=== PATIENT | female | born 1950 | race Caucasian/White ===

== ENCOUNTER → 2017-01-12 | Day surgery (SDC) | payer OTHER ==
[~2017-01-12] MED LIST: ASPIRIN EC81 M1 PO; LISINOPRIL20 M1 PO; TIMOLOL MALEATE5 M4 OPH
--- NOTE | 2017-01-12 14:07 | Operative Report ---
Operative/Inv Procedure Report Surgery Date: 01/12/17 Name of Procedure: Left subclavian Port-A-Cath placement with ultrasound and fluoroscopic guidance Pre-Operative Diagnosis: Metastatic squamous cell carcinoma of the head and neck Post-Operative Diagnosis: Same Estimated Blood Loss: scant Surgeon/Sand Mixer Operator: QAMAR TAYLOR MD Anesthesia: local monitored anesthesi Implants: PowerPort Operative Indication: Patient presents for Port-A-Cath placement to facilitate adjuvant chemotherapy/ radiation therapy Operative/Procedure Note Note: After consent she was brought to the operating room and laid supine. Sedation was obtained and her left chest and neck were prepped and draped. Using ultrasound guidance, the subclavian vein was identified below the clavicle. It was percutaneously accessed and the wire placed on the right atrium. Confirmation of placement was performed with fluoroscopy. An incision was made over the wire and a pocket created inferiorly. The port was placed into the pocket and the catheter measured under fluoroscopy. It was trimmed to 20 cm. The dilating sheath was then placed over the wire under fluoroscopy. The catheter was placed on the right atrium and the sheath peeled away. Final fluoroscopic images showed the catheter at the atrial/SVC junction. The port was anchored to the deep subcutaneous tissues tissues with 0 Vicryl suture. It was flushed with concentrated heparin. The incision was closed in layers of 304 0 Vicryl. Steri-Strips and sterile dressing applied. Sponge and needle counts are correct CC: SHABNAM SHORE,HALEY; WILBER SHORE,ZEKE Reeder; SUJIT SHORE,YOLIE Alcazar
--- NOTE | 2017-01-12 15:05 | RADIOLOGY REPORT ---
EXAMINATION: XR PORTABLE CHEST CLINICAL INFORMATION: Status post Port-A-Cath placement. COMPARISON: 01/12/[address] 11/27/2016. TECHNIQUE: Portable AP view of the chest was obtained. FINDINGS: There is a left chest wall CT compatible port which terminates at the mid SVC. Cardiac leads overlie the chest. The lungs are well expanded. There is no focal consolidation, edema, or effusion. No pneumothorax. The cardiomediastinal silhouette is within normal limits. No acute osseous abnormality. IMPRESSION: Left chest wall port in place. No pneumothorax. Clear lungs.
--- NOTE | 2017-01-13 15:41 | RADIOLOGY REPORT ---
EXAMINATION:\H\ \N\XR CHEST CLINICAL INFORMATION: Port-A-Cath insertion. COMPARISON: None TECHNIQUE: 2 fluoroscopic images obtained in the OR submitted. FINDINGS: Partial visualization of a left-sided subclavian venous catheter with the tip at the cavoatrial junction. Fluoroscopy time of 1 minute and 1 second. IMPRESSION: Fluoroscopy used by Dr. Null during left port insertion. The catheter tip is at the cavoatrial junction on the final image. Please refer to his operative note for specific details.
== END ==
LOC: STS 01:03
DX: C77.0 Secondary and unspecified malignant neoplasm of lymph nodes of head, face and neck (principal); Z87.891 Personal history of nicotine dependence; Z85.3 Personal history of malignant neoplasm of breast; I10 Essential (primary) hypertension
CPT/HCPCS: C1788; J0131; J0690; J1644; J2250